=== PATIENT | female | born 1950 | race Hispanic/Latino ===

== ENCOUNTER 2018-06-30 06:35 | Emergency (ER) | payer OTHER ==
[2018-06-30 07:03] VITALS: TEMP 97.7
--- NOTE | 2018-06-30 07:15 | ED PDOC ---
Upper Extremity Pain/Injury Time Seen by Provider: 06/30/18 07:09 Chief Complaint (Nursing): Upper Extremity Problem/Injury Chief Complaint (Provider): left shoulder and wrist pain History Per: Patient History/Exam Limitations: no limitations Onset/Duration Of Symptoms: Hrs (this morning) Current Symptoms Are (Timing): Still Present Additional Complaint(s): Hazel Magaña is a 67 year old female, with a past medical history of HTN, who presents to the emergency department complaining of left shoulder and left wrist pain after she tripped and fell this morning. Patient states she landed on her left arm. She denies any other injuries or dizziness. No further medical complaints. PMD: [place] Past Medical History Reviewed: Historical Data, Nursing Documentation, Vital Signs Vital Signs: Last Vital Signs Temp 97.7 F 06/30/18 06:57 Pulse 66 06/30/18 06:57 Resp 17 06/30/18 06:57 BP Pulse Ox 97 06/30/18 06:57 - Medical History PMH: HTN - Surgical History Surgical History: No Surg Hx - Family History Family History: States: Unknown Family Hx - Social History Current smoker - smoking cessation education provided: No Alcohol: None Drugs: Denies - Home Medications Home Medications: Ambulatory Orders Medication Instructions Recorded traMADol [Ultram] 50 mg PO Q8 #10 tab 06/30/18 - Allergies Allergies/Adverse Reactions: Allergies Allergy/AdvReac Type Severity Reaction Status Date / Time No Known Allergies Allergy Verified 06/30/18 07:02 Review of Systems ROS Statement: Except As Marked, All Systems Reviewed And Found Negative Musculoskeletal: Positive for: Shoulder Pain (left), Hand Pain (left wrist) Neurological: Negative for: Headache, Dizziness Physical Exam - Reviewed Nursing Documentation Reviewed: Yes Vital Signs Reviewed: Yes - Physical Exam Appears: Positive for: No Acute Distress Head Exam: Positive for: ATRAUMATIC, NORMOCEPHALIC Skin: Positive for: Normal Color, Warm, Dry Eye Exam: Positive for: Normal appearance Neck: Positive for: Normal, Painless ROM (Full ROM, nontender) Extremity: Positive for: Tenderness (left shoulder posteriorly and left wrist radial aspect. Left elbow nontender), Other (Radial pulse 2/4). Negative for: Normal ROM (left shoulder ROM limited by pain), Deformity (left shoulder, left elbow and left wrist), Swelling Neurologic/Psych: Positive for: Alert, Oriented. Negative for: Motor/Sensory Deficits (no focal deficits) - ECG O2 Sat by Pulse Oximetry: 97 (RA) Pulse Ox Interpretation: Normal Medical Decision Making Medical Decision Making: Time: 07:09 Initial Plan: --Shoulder left [RAD] --Wrist, left 3 views [RAD] --Reevaluation ----- Scribe Attestation: Documented by Edwin Eduardo, acting as a scribe for Mookie Everett MD. Provider Scribe Attestation: All medical record entries made by the Scribe were at my direction and personally dictated by me. I have reviewed the chart and agree that the record accurately reflects my personal performance of the history, physical exam, medical decision making, and the department course for this patient. I have also personally directed, reviewed, and agree with the discharge instructions and disposition. Disposition - Clinical Impression Clinical Impression: Wrist fracture - Patient ED Disposition Is Patient to be Admitted: No Counseled Patient/Family Regarding: Studies Performed, Diagnosis, Need For Followup, Rx Given - Disposition Referrals: Margoth Eugene MD [Staff Provider] - Disposition: Routine/Home Disposition Time: 08:21 Condition: FAIR Prescriptions: traMADol [Ultram] 50 mg PO Q8 #10 tab Instructions: Wrist Fracture (DC) Forms: [employer] ([employer]wana)
[2018-06-30 08:43] VITALS: BP 124/74
--- NOTE | 2018-06-30 08:48 | RAD ---
Date of service: 06/30/2018 PROCEDURE: Radiographs of the Left Shoulder HISTORY: trauma COMPARISON: No prior. FINDINGS: BONES: Cortical discontinuity is suspected at the region of the greater tuberosity of the left humeral head suspicious for a nondisplaced fracture. JOINTS: Normal. Glenohumeral and acromioclavicular joints preserved. No osteoarthritis. SOFT TISSUES: Normal. OTHER FINDINGS: None. IMPRESSION: Potential nondisplaced fracture greater tuberosity left humeral head. CT or MRI can be utilized for further characterization.
[2018-06-30 09:31] VITALS: PULSE 72; RESP 16; O2SAT 98
--- NOTE | 2018-06-30 09:40 | RAD ---
Date of service: 06/30/2018 PROCEDURE: Left Wrist Radiographs. HISTORY: trauma COMPARISON: None. FINDINGS: BONES: An impacted fracture of the distal metaphysis of the left radius is appreciate compatible the complex fracture. No subluxation or dislocation. The carpal bones appear intact diffusely though demineralized suggesting osteoporosis. Clinically correlate further. Advanced degenerative changes seen the basal joint. Local soft tissues reflect limited volar edema. JOINTS: No subluxation or dislocation. SOFT TISSUES: Normal. OTHER FINDINGS: None. IMPRESSION: Impacted Colles fracture distal left radius. No subluxation or dislocation. Diffuse osteopenia suggests osteoporosis.
== END 2018-06-30 09:10 | disposition home or self-care (01) ==
LOC: H.ER 06:35
DX: S62.102A Fracture of unspecified carpal bone, left wrist, initial encounter for closed fracture (principal); W01.0XXA Fall on same level from slipping, tripping and stumbling without subsequent striking against object, initial encounter